=== PATIENT | male | born 1990 | race Caucasian/White ===

== ENCOUNTER 2017-09-24 14:56 | Emergency (ER) | payer SELFPAY, OTHER ==
[2017-09-24] MEDS: HYDROmorphONE 1 MG/5 ML IV SYRINGE IV (15:46)
[2017-09-24] MEDS: ONDANSETRON 4 MG INJ IV (15:46)
[2017-09-24] MEDS: PROPOFOL 200 MG INJ IV (15:54)
[2017-09-24] MEDS: KETAMINE (50 MG/ML) 10 ML VIAL IV (15:54)
[2017-09-24 15:59] LABS: WHITE BLOOD COUNT 16.8 10^3/ul (4.8-10.8)
[2017-09-24 15:59] LABS: ADD MAN DIFF? NO; BASOPHIL # 0.1 10^3/ul (0.0-0.1); BASOPHILS % 0.6 % (0.0-2.0); EOSINOPHILS # 0.1 10^3/ul (0.0-0.5); EOSINOPHILS % 0.6 % (0.0-7.0); HEMATOCRIT 45.5 % (42.0-52.0); HEMOGLOBIN 16.2 g/dl (14.0-18.0); LYMPHOCYTES # 1.8 10^3/ul (0.8-2.9); LYMPHOCYTES % 10.5 % (15.0-51.0); MEAN CORPUSCULAR HEMOGLOBIN 30.7 pg (29.0-33.0); MEAN CORPUSCULAR HGB CONC 35.6 g/dl (32.0-37.0); MEAN CORPUSCULAR VOLUME 86.2 fl (82.0-101.0); MEAN PLATELET VOLUME 10.4 fl (7.4-10.4); MONOCYTE # 0.9 10^3/ul (0.3-0.9); MONOCYTES % 5.2 % (0.0-11.0); NEUTROPHIL # 13.9 10^3/ul (1.6-7.5); NEUTROPHILS % 82.5 % (39.0-77.0); PLATELET COUNT 266 10^3/UL (140-415); RED BLOOD COUNT 5.28 10^6/ul (4.70-6.10); RED CELL DISTRIBUTION WIDTH 11.9 % (11.5-14.5)
[2017-09-24 16:21] LABS: INR 0.97; PARTIAL THROMBOPLASTIN TIME 25.8 Sec (25.0-35.0)
[2017-09-24 16:22] LABS: ANION GAP 17 (8-16); BLOOD UREA NITROGEN 13 mg/dl (7-20); CALCIUM 9.3 mg/dl (8.4-10.2); CARBON DIOXIDE 28 mmol/L (21-31); CHLORIDE 100 mmol/L (97-110); CREATININE 0.99 mg/dl (0.61-1.24); GLUCOSE 122 mg/dl (70-220); POTASSIUM 3.7 mmol/L (3.5-5.1); SODIUM 141 mmol/L (135-144)
== END 2017-09-24 17:15 | disposition home or self-care (01) ==
LOC: E/R 14:56
DX: S53.104A Unspecified dislocation of right ulnohumeral joint, initial encounter (principal); M79.601 Pain in right arm; W18.39XA Other fall on same level, initial encounter; Y92.322 Soccer field as the place of occurrence of the external cause
CPT/HCPCS: 24600; 36415; 73080-RT; 80048; 85025; 85610; 85730; 96374; 96375; 99285-25

== ENCOUNTER 2017-10-01 16:38 | Emergency (ER) | payer MEDICAID | END 2017-10-01 17:16 | disposition home or self-care (01) | LOC: FTE 16:38 → E/R 17:16 | DX: S53.104D Unspecified dislocation of right ulnohumeral joint, subsequent encounter (principal); X58.XXXD Exposure to other specified factors, subsequent encounter; Y92.9 Unspecified place or not applicable | CPT/HCPCS: 29105; 99282-25 ==